=== PATIENT | male | born 1995 | race Caucasian/White ===

== ENCOUNTER 2022-04-03 14:29 | Inpatient (IN) | payer SELFPAY ==
[~2022-04-03] VITALS: Ht 175.3 cm; Wt 90.7 kg
[2022-04-03] MEDS ORDERED: ONDANSETRON 4 MG/2 ML VIAL IV PRN (17:30)
[2022-04-03] MEDS ORDERED: ACETAMINOPHEN 325 MG TABLET PO PRN (17:30)
[2022-04-03] MEDS ORDERED: MAGNESIUM HYDROXIDE 30 ML LIQUID UDC PO PRN (17:30)
[2022-04-03] MEDS ORDERED: ENOXAPARIN SODIUM 40 MG/0.4 ML DISP.SYRIN SQ ONE ×2 (17:30→20:25)
[2022-04-03 17:40] LABS: MEAN CORPUSCULAR HEMOGLOBIN 29.7 uug (23.8-33.4); MEAN CORPUSCULAR VOLUME 88.5 fL (73.0-96.2); PLATELET COUNT (AUTO) 318 K/uL (152-348)
[2022-04-03 18:04] LABS: ETHANOL 169 MG/DL (0-0)
[2022-04-03 18:09] LABS: ALANINE AMINOTRANSFERASE 44 U/L (16-63); ALKALINE PHOSPHATASE 72 U/L (50-136); ASPARTATE AMINOTRANSFERASE 20 U/L (15-37); BILIRUBIN,DIRECT 0.3 mg/dL (0.0-0.2); BILIRUBIN,TOTAL 0.8 mg/dL (0.2-1.0); CARBON DIOXIDE 21 mmol/L (21-32); CHLORIDE 104 mmol/L (98-107); GLUCOSE 98 mg/dL (74-106); POTASSIUM 4.1 mmol/L (3.5-5.1); TOTAL PROTEIN, SERUM 8.5 g/dL (6.4-8.2); UREA NITROGEN, BLOOD 11 mg/dL (7-18)
[2022-04-03 18:13] LABS: ACETAMINOPHEN < 2.0 ug/mL (10-30)
[2022-04-03 18:14] LABS: THYROID STIMULATING HORMONE 0.574 mIU/mL (0.358-3.740)
[2022-04-03] MEDS: IV NS 1000 ML 1,000 ML IV PRN (20:38)
[2022-04-04 02:33] LABS: *BILIRUBIN,URIN NEGATIVE (NEGATIVE); *BLOOD, URINE NEGATIVE (NEGATIVE); *CLARITY,URINE CLEAR (CLEAR); *COLOR,URINE YELLOW (YELLOW); *KETONES,URINE 1+ (NEGATIVE); *UROBILINOGEN,URINE 0.2 E.U./dl (NORMAL); LEUKOCYTE ESTERASE ,URINE NEGATIVE (NEGATIVE); NITRITE, URINE NEGATIVE (NEGATIVE); PH,URINE 6.5 (5.0-8.0); UGLUCOSE NEGATIVE (NEGATIVE)
[2022-04-04 03:03] LABS: *AMPHETAMINE, URINE NEGATIVE (NEGATIVE); *CANNABINOID, URINE POSITIVE (NEGATIVE); *COCCAINE, URINE NEGATIVE (NEGATIVE); *OPIATE, URINE NEGATIVE (NEGATIVE); *PHENCYCLIDINE SCREEN,URINE NEGATIVE (NEGATIVE)
[2022-04-04 05:49] LABS: HEMATOCRIT 44.2 % (36.7-47.1); MEAN CORPUSCULAR HEMOGLOBIN 30.1 uug (23.8-33.4); MEAN CORPUSCULAR VOLUME 87.3 fL (73.0-96.2); PLATELET COUNT (AUTO) 278 K/uL (152-348)
[2022-04-04 06:23] LABS: CREATININE 0.9 mg/dL (0.6-1.3); PHOSPHOROUS 3.6 mg/dL (2.5-4.9)
[2022-04-04] MEDS: IV NS 1000 ML 1,000 ML IV PRN ×2 (06:34→19:52)
[2022-04-04] MEDS ORDERED: CEFAZOLIN 1 G VIAL ONE (15:30)
[2022-04-04] MEDS ORDERED: ONDANSETRON 4 MG/2 ML VIAL ONE (15:30)
[2022-04-04] MEDS ORDERED: PROPOFOL 200 MG/20 ML BOTTLE ONE (15:30)
[2022-04-04] MEDS ORDERED: DEXAMETHASONE SOD PHOSPHATE 4 MG INJ ONE (15:30)
[2022-04-04] MEDS ORDERED: KETOROLAC TROMETHAMINE 30 MG INJ ONE (15:30)
[2022-04-04] MEDS ORDERED: LIDOCAINE-MPF 2% 5 ML VIAL ONE (15:30)
[2022-04-04 18:15] VITALS: BP 143/84
[2022-04-04] MEDS: ATORVASTATIN 20 MG TABLET PO SCH (20:27)
[2022-04-04 20:34] VITALS: BP 144/76
[2022-04-05 04:50] VITALS: BP 116/69
[2022-04-05 06:43] LABS: HEMATOCRIT 43.4 % (36.7-47.1); MEAN CORPUSCULAR HEMOGLOBIN 30.3 uug (23.8-33.4); MEAN CORPUSCULAR VOLUME 89.1 fL (73.0-96.2); PLATELET COUNT (AUTO) 251 K/uL (152-348)
[2022-04-05 06:59] LABS: CREATININE 0.8 mg/dL (0.6-1.3); MAGNESIUM 1.9 mg/dL (1.8-2.4); POTASSIUM 3.9 mmol/L (3.5-5.1)
[2022-04-05 12:24] VITALS: BP 118/79
[2022-04-05 16:14] VITALS: BP 131/72
[2022-04-05 20:00] VITALS: BP 114/65
[2022-04-05] MEDS: ATORVASTATIN 20 MG TABLET PO SCH (20:24)
[2022-04-06] MEDS: IV NS 1000 ML 1,000 ML IV PRN (03:27)
[2022-04-06 04:00] VITALS: BP 110/73
[2022-04-06 06:44] LABS: HEMATOCRIT 43.7 % (36.7-47.1); MEAN CORPUSCULAR HEMOGLOBIN 30.8 uug (23.8-33.4); MEAN CORPUSCULAR VOLUME 89.3 fL (73.0-96.2); PLATELET COUNT (AUTO) 257 K/uL (152-348)
[2022-04-06 06:52] LABS: CREATININE 0.9 mg/dL (0.6-1.3); MAGNESIUM 1.8 mg/dL (1.8-2.4); PHOSPHOROUS 3.4 mg/dL (2.5-4.9); POTASSIUM 3.1 mmol/L (3.5-5.1)
[2022-04-06] MEDS ORDERED: POTASSIUM CHLORIDE 20 MEQ TAB.PRT.SR PO ONE (09:45)
[2022-04-06] MEDS: POTASSIUM CHLORIDE 50 ML IV SCH ×4 (12:00→15:39)
[2022-04-06 12:37] VITALS: BP 129/68
[2022-04-06 16:36] VITALS: BP 126/76
[2022-04-06] MEDS ORDERED: MIDAZOLAM HCL 2 MG/2 ML VIAL ONE (17:56)
[2022-04-06] MEDS ORDERED: HYDROMORPHONE 2 MG/1 ML DISP.SYRIN ONE (17:56)
[2022-04-06] MEDS ORDERED: VANCOMYCIN HCL 500 MG VIAL ONE (18:48)
[2022-04-06] MEDS ORDERED: BUPIVACAINE PF 0.5% 30 ML VIAL ONE (19:21)
[2022-04-06] MEDS ORDERED: MEPERIDINE 25 MG/1 ML DISP.SYRIN ONE (19:38)
[2022-04-06 20:00] VITALS: BP 134/86
[2022-04-06] MEDS ORDERED: FENTANYL CITRATE 100 MCG/2 ML AMPUL ONE (20:09)
[2022-04-06] MEDS ORDERED: IV D5W-0.45% NS +20 KCL 1,000 ML IV ONE ×2 (20:31→23:23)
[2022-04-06 21:00] VITALS: BP 134/86
[2022-04-06] MEDS: ATORVASTATIN 20 MG TABLET PO SCH (21:51)
[2022-04-06] MEDS ORDERED: MORPHINE SULFATE 4 MG/1 ML DISP.SYRIN IV PRN ×2 (22:00→22:45)
[2022-04-06] MEDS ORDERED: HYDROCODONE/APAP 10-325 MG TABLET PO PRN ×2 (22:00→22:45)
[2022-04-06] MEDS ORDERED: CEFAZOLIN 1 G in IV DEXTROSE 5% 50 ML IV SCH (22:00)
[2022-04-06] MEDS ORDERED: CEFAZOLIN 1 G VIAL IV SCH (22:00)
[2022-04-06] MEDS ORDERED: POTASSIUM CHLORIDE 20 MEQ in IV D5 1/2 NS 1000 ML 1,000 ML IV PRN (22:00)
[2022-04-06] MEDS ORDERED: CEFAZOLIN 1 G VIAL ONE (23:21)
[2022-04-07] MEDS ORDERED: IBUPROFEN 800 MG TABLET PO PRN (01:00)
[2022-04-07 04:00] VITALS: BP 138/87
[2022-04-07 06:52] LABS: HEMATOCRIT 42.4 % (36.7-47.1); MEAN CORPUSCULAR HEMOGLOBIN 30.4 uug (23.8-33.4); MEAN CORPUSCULAR VOLUME 88.9 fL (73.0-96.2); PLATELET COUNT (AUTO) 282 K/uL (152-348)
[2022-04-07 07:08] LABS: CREATININE 0.9 mg/dL (0.6-1.3); MAGNESIUM 1.9 mg/dL (1.8-2.4); PHOSPHOROUS 3.5 mg/dL (2.5-4.9); POTASSIUM 4.3 mmol/L (3.5-5.1)
[2022-04-07] MEDS ORDERED: CEFAZOLIN 1 G in IV DEXTROSE 5% 50 ML IV ONE (11:00)
[2022-04-07 11:16] VITALS: BP 138/82
[2022-04-07] MEDS ORDERED: IBUP-1957 PO (12:20)
[2022-04-07] MEDS ORDERED: ATOR20TA PO (12:20)
[2022-04-07] MEDS ORDERED: ACET325T53 PO (12:20)
== END 2022-04-07 15:30 | disposition home or self-care (01) | DRG 492 ==
LOC: ER 14:29 → TRANSITION 04-04 02:28 → MEDSURG3 04-04 17:31
PROVIDERS: ADMIT Nurse Practitioner Acute Care; ATTEND Nurse Practitioner Acute Care
PROC: 0QSJ04Z Reposition Right Fibula with Internal Fixation Device, Open Approach (ICD-10-PCS; principal; 2022-04-06)
DX: S82.441A Displaced spiral fracture of shaft of right fibula, initial encounter for closed fracture (principal); G92.8 Other toxic encephalopathy; D68.59 Other primary thrombophilia; Z74.09 Other reduced mobility; E66.9 Obesity, unspecified; Z68.29 Body mass index [BMI] 29.0-29.9, adult; F12.90 Cannabis use, unspecified, uncomplicated; D72.828 Other elevated white blood cell count; F10.129 Alcohol abuse with intoxication, unspecified; Y90.6 Blood alcohol level of 120-199 mg/100 ml; T51.91XA Toxic effect of unspecified alcohol, accidental (unintentional), initial encounter; X58.XXXA Exposure to other specified factors, initial encounter; Y93.9 Activity, unspecified; Y92.481 Parking lot as the place of occurrence of the external cause; E78.5 Hyperlipidemia, unspecified; Z20.822 Contact with and (suspected) exposure to COVID-19
CPT/HCPCS: 36415; 70450; 71045; 73600; 73610; 83735; 84100; 84443; 84484; 85025; 85730; 87086; 93005; A4649; A4663; C1713; G0378; G0480; J0690; J1100; J1170; J1650; J1885; J2175; J2250; J2405; J3010; J3370; J3480; J3490; J7040